=== PATIENT | male | born 1980 | race Caucasian/White ===

== ENCOUNTER 2018-09-23 20:35 | Emergency (ER) | payer OTHER ==
[2018-09-23 20:55] VITALS: RESP 18; O2SAT 98
[2018-09-23 21:21] LABS: BASOPHILS % (AUTO) 1 % (0-3); EOSINOPHILS % (AUTO) 2 % (0-9); HEMATOCRIT 40 % (39-53); HEMOGLOBIN 13.9 gm/dl (13.5-17.7); LYMPHOCYTES % (AUTO) 33.2 % (10-50); MEAN CORPUSCULAR HEMOGLOBIN 32.8 pg (27.0-32.0); MEAN CORPUSCULAR HGB CONC 34.9 gm/dl (32.0-36.0); MEAN CORPUSCULAR VOLUME 94 fL (80-100); MONOCYTES % (AUTO) 8.3 % (0-12); NEUTROPHILS % (AUTO) 55.9 % (37-80)
[2018-09-23 21:27] LABS: CALCIUM 8.7 mg/dl (8.5-10.1); CREATININE 0.91 mg/dl (0.80-1.30)
[2018-09-23] MEDS ORDERED: CEFTRIAXONE 1 GM PDS IM ONE (21:46)
[2018-09-23] MEDS ORDERED: POTASSIUM CHLORIDE 10 MEQ TER PO ONE (21:48)
[2018-09-23] MEDS ORDERED: CEFTRIAXONE 1 GM PDS ONE (21:53)
[2018-09-23] MEDS ORDERED: LIDOCAINE HCL 1% MPF 30 SOL ONE (21:53)
[2018-09-23] MEDS ORDERED: POTASSIUM CHLORIDE 10 MEQ TER ONE (21:53)
[2018-09-23 22:33] VITALS: BP 153/89; PULSE 106; TEMP 98.2
== END 2018-09-23 22:12 | disposition home or self-care (01) | DRG 603 ==
LOC: ED 20:35
DX: L03.116 Cellulitis of left lower limb (principal); M79.605 Pain in left leg
CPT/HCPCS: 36415; 80048; 85025; 85379; 96372; 99282; 99291; J0696; A9270-GY; J2001